=== PATIENT | female | born 1995 ===

== ENCOUNTER 2020-06-10 15:53 | Emergency (ER) | payer MEDICAID ==
[~2020-06-10] VITALS: Ht 160 cm; Wt 46.8 kg
[2020-06-10 16:13] VITALS: BP 100/57; Ht 160 cm; Wt 46.8 kg
[2020-06-10 17:11] LABS: HEMATOCRIT 33.5 % (36.0-48.0); HEMOGLOBIN 11.4 g/dL (12-16); MCH 29.6 pg (26.0-34.0); MEAN PLATELET VOLUME 8.6 fL (7.4-10.4); PLATELET COUNT 328 10x3/uL (130-400); RBC 3.85 10x6/uL (4.00-5.40); WBC 33.4 10x3/uL (4.8-10.8)
[2020-06-10 17:23] LABS: ALBUMIN 2.5 g/dL (3.4-5.0); ALKALINE PHOSPHATASE 123 U/L (30-120); ALT (SGPT) 36 U/L (10-68); AMYLASE - SERUM 41 U/L (25-115); BILIRUBIN - TOTAL 1.27 mg/dL (0.2-1.3); CALC OSMOLALITY 273 mosm/kg (275-300); CALCIUM 9.2 mg/dL (8.5-10.1); CARBON DIOXIDE 27.2 mmol/L (21.0-32.0); CHLORIDE - SERUM 96 mmol/L (98-107); CREATININE - SERUM 1.6 mg/dL (0.6-1.3); GLUCOSE 151 mg/dL (74-106); LIPASE 106 U/L (73-393); PROTEIN - SERUM 8.2 g/dL (6.4-8.2); SODIUM 133 mmol/L (136-145); UREA NITROGEN 27 mg/dL (7-18); eGFR NON AFRICAN AMERICAN 42 mL/min (90-120)
[2020-06-10 17:31] LABS: TROPONIN-I < 0.017 ng/mL (0.000-0.060)
[2020-06-10 17:33] LABS: POTASSIUM - SERUM 2.4 mmol/L (3.5-5.1)
[2020-06-10 18:41] LABS: LYMPHOCYTES 7 % (15-50); MONOCYTES 6 % (2-11); NEUTROPHILS 82 % (40-80); PLATELET ESTIMATE NORMAL
== END 2020-06-10 18:13 | disposition left against medical advice (07) ==
LOC: D.ER 15:53
PROVIDERS: Family Medicine
DX: M54.9 Dorsalgia, unspecified (principal); R10.9 Unspecified abdominal pain